=== PATIENT | female | born 1970 | race Caucasian/White ===

== ENCOUNTER → 2017-03-12 | Day surgery (SDC) | payer BC ==
[~2017-03-12] VITALS: Ht 165.1 cm; Wt 99.0 kg
[~2017-03-12] MED LIST: AMLO5TAB2 PO; AMPICILLIN/SULBAC 3 GM/NS 100 ML IV SCH; ATOR20TA15 PO; CHLORHEXIDINE GLUCONATE 2 % 1 PACK (2 CLOTHS) TOPICAL PRN; CLON.5 PO; EXENINJ SQ; FAMOTIDINE 20 MG/2 ML VIAL ONE; HYDROmorphone HCL PF 1 MG/ML VIAL ONE; INSU1.2I SQ; INSULIN HUMAN REGULAR 1,000 UNITS/10 ML VIAL SQ PRN; LACTATED RINGER'S 1000 ML IV PRN; LIDOCAINE 1%/EPINEPHrine 1:100,000 SOLN 20 ML VIAL ONE; LORazepam 2 MG/ML VIAL ONE; METF-382 PO; METOPROLOL TARTRATE 25 MG TAB PO PRN; MIDAZOLAM HCL 2 MG/2 ML VIAL ONE; MORPHINE SULFATE 4 MG/ML INJ ONE; NEOSTIGMINE 3 MG/3 ML SYR IV ONE; ONDANSETRON HCL 4 MG/2 ML VIAL IV PUSH ONE; OXYMETAZOLINE HCL 0.05% 15 ML NASAL SPRAY ONE; POVIDONE IODINE 5% (ANTISEPSIS KIT) 4 APPLICATIONS EACH NARE PRN; PROPOFOL 200 MG/20 ML AMP IV ONE; SODIUM CHLORID 0.9% 500 ML IV PRN; VALS160T4 PO; fentaNYL CITRATE 250 MCG/5 ML AMP IV ONE; fentaNYL CITRATE 250 MCG/5 ML AMP ONE
[2017-03-12 06:50] VITALS: BP 126/83; PULSE 64; RESP 18; TEMP 97.7; O2SAT 97
[2017-03-12 11:20] VITALS: BP 135/89; PULSE 58; RESP 16; TEMP 98.1; O2SAT 94
--- NOTE | 2017-03-13 21:32 | MP ---
cc: ADOLFO SHELL MD DATE OF SURGERY 03/12/[address] Xander shell PREOPERATIVE DIAGNOSIS 1. Nasal airway obstruction 2. Nasal septal deviation. 3. Hypertrophy of inferior turbinates. POSTOPERATIVE DIAGNOSIS 1. Nasal airway obstruction 2. Nasal septal deviation. 3. Hypertrophy of inferior turbinates. OPERATION PERFORMED 1. Open repair nasal septal fracture. 2. Bilateral submucosal resection of inferior turbinates INDICATIONS Documented in the history and physical. PROCEDURE IN DETAIL The patient was taken to OR #2 and placed in the supine position following induction of general anesthesia and intubation, the nose was packed bilaterally with cotton pledgets saturated in 0.05% Oxymetazoline. Nasal septum and inferior turbinates were injected with a total of 8 mL of 1% Xylocaine with epinephrine 1:100,000. She was then prepped and draped for surgery. Packing was removed and a hemitransfixion incision was made in the left nasal vestibule. Through this incision, the septal mucosa was elevated bilaterally as far as the junction of the bony cartilaginous septum. This exposed the quadrangular cartilage which showed evidence of old septal fracture. The cartilage was thick and irregularly deviated with numerous points and spurs obstructing the nasal airway. A cumulative area of 2 x 2.5 cm was removed preserving 1.5 cm dorsal and caudal cartilaginous struts. Next, the mucosa was elevated from the bony septum and the maxillary crest. These were removed using Ortiz Velasco forceps and a 6-mm Renetta chisel. The incision was then closed with a running suture of 4-0 chromic and the mucosal layers of septum were approximated to each other with a quilting stitch of 4-0 plain gut. Inferior turbinates were addressed next. They were fractured out medially. Additional injection of 2 mL of lidocaine with epinephrine was placed in each one posteriorly. On the left side, a 1 cm stab incision was made in the anterior and the inferior turbinate and using a Vic elevator a pocket was opened within the submucosal soft tissue along the medial surface of the conchal bone. Into this pocket, the 2.9 mm Olympus turbinate blade ___ the soft tissue from the medial surface of the conchal bone, was then reinserted into the pocket and withdrawn a second time, this time with the bipolar cautery activated. Additional cautery was applied to the stab incision site following full withdrawal. The right inferior turbinate was then operated in the same fashion and the inferior turbinates were then relateralized to the lateral nasal wall. The nose was then irrigated and suctioned and was packed with 5.5 cm rapid rhino packs bilaterally. Each pack was inflated with 5 mL of air. Procedure was then terminated. The patient was reversed from anesthesia and taken to recovery in good condition. There were no complications. Blood loss was 80 mL. MD MAC Angeles/ /3:07 PM /9:19 PM
== END | disposition home or self-care (01) ==
LOC: PHSDC 06:13
PROVIDERS: ATTEND Otolaryngology
DX: J34.2 Deviated nasal septum (principal); J34.89 Other specified disorders of nose and nasal sinuses; J34.3 Hypertrophy of nasal turbinates; E78.00 Pure hypercholesterolemia, unspecified; E11.9 Type 2 diabetes mellitus without complications; Z79.899 Other long term (current) drug therapy; Z79.84 Long term (current) use of oral hypoglycemic drugs
CPT/HCPCS: 00160; 21336; 30140; J0295; J1170; J2060; J2250; J2270; J2405; J2710; J3010; J7120

== ENCOUNTER 2017-04-11 16:18 | Inpatient (IN) | payer BC ==
[2017-04-11] VITALS (11 sets, daily range): BP systolic 109–140; BP diastolic 69–79; PULSE 67–83; RESP 18–20; TEMP 98.8; O2SAT 96–99
[~2017-04-11] VITALS: Ht 165.1 cm; Wt 95.3 kg
[~2017-04-11 16:18] MED LIST changes: -AMPICILLIN/SULBAC 3 GM/NS 100 ML IV SCH; -CHLORHEXIDINE GLUCONATE 2 % 1 PACK (2 CLOTHS) TOPICAL PRN; -FAMOTIDINE 20 MG/2 ML VIAL ONE; -HYDROmorphone HCL PF 1 MG/ML VIAL ONE; -INSULIN HUMAN REGULAR 1,000 UNITS/10 ML VIAL SQ PRN; -LACTATED RINGER'S 1000 ML IV PRN; -LIDOCAINE 1%/EPINEPHrine 1:100,000 SOLN 20 ML VIAL ONE; -LORazepam 2 MG/ML VIAL ONE; -METOPROLOL TARTRATE 25 MG TAB PO PRN; -MIDAZOLAM HCL 2 MG/2 ML VIAL ONE; -MORPHINE SULFATE 4 MG/ML INJ ONE; -NEOSTIGMINE 3 MG/3 ML SYR IV ONE; -ONDANSETRON HCL 4 MG/2 ML VIAL IV PUSH ONE; -OXYMETAZOLINE HCL 0.05% 15 ML NASAL SPRAY ONE; -POVIDONE IODINE 5% (ANTISEPSIS KIT) 4 APPLICATIONS EACH NARE PRN; -PROPOFOL 200 MG/20 ML AMP IV ONE; -SODIUM CHLORID 0.9% 500 ML IV PRN; -fentaNYL CITRATE 250 MCG/5 ML AMP IV ONE; -fentaNYL CITRATE 250 MCG/5 ML AMP ONE
[2017-04-11] MEDS ORDERED: SODIUM CHLOR 0.9% 1000 ML INJ 1,000 ML IV ONE (16:35)
[2017-04-11] MEDS ORDERED: SODIUM CHLORIDE 0.9% 50 ML BAG IVF ONE (16:45)
[2017-04-11] MEDS ORDERED: ALTEPLASE DRIP 78.5 MG in SYRINGE/BAG 1 EA IV ONE (16:45)
[2017-04-11] MEDS ORDERED: ALTEPLASE BOLUS 9 MG/9 ML SYR IV ONE (16:45)
[2017-04-11] MEDS ORDERED: MISCELLANEOUS NURSING INFORMATION XX PRN (16:45)
--- NOTE | 2017-04-11 16:46 | PD ---
HPI Chief Complaint: Neuro Symptoms/ Deficits Time Seen by Provider: 16:33 Travel History International Travel<30 days: No Contact w/Intl Traveler<30days: No Traveled to known affect area: No History of Present Illness HPI 46-year-old female complains of right arm and right leg numbness and weakness. Patient states the symptoms started about 1:30 this afternoon. Patient states that she has persistent right arm and right leg numbness and tingling and weakness since then. Patient denies any history of TIA or CVA. Patient denies any headache. Patient denies any visual change. Patient complains of numbness sensation on the right side of face also. Patient denies any neck pain. Patient denies any chest pain or shortness of breath. Patient denies abdominal pain. Patient denies any recent injury. Patient has history hypertension, diabetes, hyperlipidemia. Patient is a nonsmoker. PFSH Past Medical History Cancer: No Cardiovascular Problems: Yes Diabetes: Yes Endocrine: No Genitourinary: No Hepatitis: No Hiatal Hernia: No Immune Disorder: No Musculoskeletal: No Neurologic: No Psychiatric: Yes (ANXIETY) Reproductive: No Respiratory: No Thyroid Disease: No ?: Not Past Surgical History Abdominal Surgery: Yes (CHOLECYSTECTOMY) AICD: No Body Medical Devices: R KNEE Gynecologic Surgery: Yes (HYSTERECTOMY) Joint Replacement: Yes (R KNEE) Oral Surgery: Yes (WISDOM TEETH EXTRACTION 1997) Pacemaker: No Social History Tobacco Use: No Substance Use: No Allergies-Medications (Allergen,Severity, Reaction): Coded Allergies: No Known Allergies (Unverified , 04/11/17) Reported Meds & Prescriptions Reported Meds & Active Scripts Active Reported Lomaira (Phentermine HCl) 8 Mg Tab 37.5 Mg PO TID Topamax (Topiramate) 25 Mg Tab 0 PO DAILY Valsartan-Hydrochlorothiazide 160-12.5 Mg Tab 1 Tab PO DAILY Metformin ER (Metformin HCl) 1,000 Mg Cam 1,000 Mg PO DAILY With evening meal Klonopin (Clonazepam) 0.5 Mg Tab 0.5 Mg PO BID PRN Bydureon Inj (Exenatide) 2 Mg Vial 2 Unit SQ Q7D Atorvastatin (Atorvastatin Calcium) 20 Mg Tab 20 Mg PO HS Amlodipine (Amlodipine Besylate) 5 Mg Tab 5 Mg PO DAILY Review of Systems General / Constitutional: No: Fever Eyes: No: Visual changes HENT: No: Headaches Cardiovascular: No: Chest Pain or Discomfort Respiratory: No: Shortness of Breath Gastrointestinal: No: Abdominal Pain Genitourinary: No: Dysuria Musculoskeletal: No: Pain Skin: No Rash Neurologic: No: Weakness Psychiatric: No: Depression Endocrine: No: Polydipsia Hematologic/Lymphatic: No: Easy Bruising Physical Exam Narrative GENERAL: Well-nourished, well-developed patient. SKIN: Focused skin assessment warm/dry. HEAD: Normocephalic. EYES: No scleral icterus. No injection or drainage. NECK: Supple, trachea midline. No JVD or lymphadenopathy. CARDIOVASCULAR: Regular rate and rhythm without murmurs, gallops, or rubs. RESPIRATORY: Breath sounds equal bilaterally. No accessory muscle use. GASTROINTESTINAL: Abdomen soft, non-tender, nondistended. MUSCULOSKELETAL: No cyanosis, or edema. BACK: Nontender without obvious deformity. No CVA tenderness. Neurologic exam: Patient is awake and alert oriented 3. Patient has mild decrease in light touch sensation the right side the face. Patient can answer question appropriately however patient states that her speech did not completely normal. Patient states that she has feeling of tongue swelling however not on examination. Patient has mild decrease in light touch sensation of the right arm and right leg and mild weakness on the right arm and right leg. Strength is 4 over 5 right upper and right lower extremity. Deep tendon reflexes 1+ and equal. Negative Babinski. Data Data Last Documented VS Vital Signs Date Time Temp Pulse Resp B/P (MAP) Pulse Ox O2 Delivery O2 Flow Rate FiO2 04/11/17 19:11 70 20 115/74 (88) 98 04/11/17 18:39 Room Air 04/11/17 16:38 98.8 04/11/17 16:35 21 Orders Orders Cath For Specimen (04/11/17 16:35) Neuro Checks Q2HX12,Q4H (04/11/17 16:35) Nursing Bedside Swallow Assess .ONCE (04/11/17 16:35) Activity Bed Rest (04/11/17 16:35) Diet Npo (04/11/17 Dinner) Prothrombin Time / Inr (Pt) (04/11/17 16:35) Act Partial Throm Time (Ptt) (04/11/17 16:35) Complete Blood Count With Diff (04/11/17 16:35) Basic Metabolic Panel (Bmp) (04/11/17 16:35) Fibrinogen (04/11/17 16:35) Creatine Kinase (Cpk) (04/11/17 16:35) Troponin I (04/11/17 16:35) Ua Includes Microscopic (04/11/17 16:35) Drug Screen, Random Urine (04/11/17 16:35) Type And Screen (04/11/17 16:35) Ct Brain W/O Iv Contrast(Rout) (04/11/17 ) Chest, Single Ap (04/11/17 ) Electrocardiogram (04/11/17 ) Beta Hcg (Quant/Titer) (04/11/17 16:35) Consult Neurology (04/11/17 16:35) Sodium Chlor 0.9% 1000 Ml Inj (Ns 1000 M (04/11/17 16:35) Blood Glucose (04/11/17 16:35) Ecg Monitoring (04/11/17 16:35) Iv Access Insert/Monitor (04/11/17 16:35) NPO (04/11/17 16:35) Oximetry (04/11/17 16:35) Oxygen Administration (04/11/17 16:35) Resp Oxygen Charles C Titrat 1-4 L (04/11/17 16:35) ^ Call Pharmacy (04/11/17 16:43) Nih Stroke Scale - Nihss .ONCE (04/11/17 16:43) Urinary Catheter Insert/Apply (04/11/17 16:43) Anticoagulant Alert (04/11/17 16:43) ^ Post Infusion Restrictions (04/11/17 16:43) ^ Medication Alert (04/11/17 16:43) Vital Signs (Adult) .As directed (04/11/17 16:43) Notify Dr: Blood Pressure (04/11/17 16:43) ^ Medication Alert (04/11/17 16:43) Alteplase Bolus (Activase Bolus) (04/11/17 16:45) Alteplase Drip (Activase Drip) (04/11/17 16:45) Sodium Chloride 0.9% Inj (Ns Inj) (04/11/17 16:45) Misc Nursing Information (04/11/17 16:45) Resp Oxygen Charles C Titrat 1-4 L (04/11/17 ) Aspirin (Aspirin) (04/11/17 17:15) Sodium Chlor 0.9% 250 Ml Inj (Ns 250 Ml (04/11/17 17:30) (Hub Use Only)Inp Phy Cons/Ref (04/11/17 17:37) Anti-Thrombin, Functional (04/11/17 17:40) Cardiolipin Abs Igg,Igm,Iga (04/11/17:40) Protein C Activity (04/11/17:40) Protein S Activity (04/11/17:40) Factor V (5) Mutation (Leiden) (04/11/17 17:40) Prothrombin [id number] Mutation (04/11/17:40) Lupus Anticoagulant Drvvt (04/11/17:40) Factor Viii (8) Activity Ref (04/11/17 17:40) Folate, Serum (04/11/17 17:40) Westergren Sedimentation Rate (04/11/17:40) Rapid Plasma Regin (Rpr) W Ttr (04/11/17:40) Debbie Screen (04/11/17:40) Thyroid Stimulating Hormone (04/11/17 17:40) Free Thyroxine (T4) (04/11/17:40) Protein Electrophoresis Serum (04/11/17:40) Vitamin B1 (Thiamine) (04/11/17 17:40) Vitamin B12 (04/11/17 17:40) Urinalysis - C+S If Indicated (04/11/17:40) Ast (Sgot) (04/11/17:40) Alt (Sgpt) (04/11/17 17:40) Mri Brain W&W/O Contrast (04/11/17 17:40) Eeg Study (04/11/17:40) Echo 2d Comp With Doppler (04/11/17:40) Holter Monitor Recording (04/11/17:40) Vacuum Pan Tender / Telemetry PAMELLA.Q8H (04/11/17 17:40) ^ Seizure Precautions (04/11/17 17:40) Mra Brain W/O Contrast (Cow) (04/11/17 17:40) [place] (04/11/17:40) Clopidogrel (Plavix) (04/11/17 17:45) Aspirin Ec (Ecotrin Ec) (04/12/17 09:00) Sodium Chlor 0.9% 1000 Ml Inj (Ns 1000 M (04/11/17 17:40) Lipid Profile (04/11/17 17:40) Mra Carotids W Contrast (04/11/17 17:40) Drug Screen, Random Urine (04/11/17 17:40) Scd&Teds Bilateral/Knee High PAMELLA.QSHIFT (04/11/17 17:40) Admit Order (Ed Use Only) (04/11/17 19:18) Labs Laboratory Tests Test 04/11/17 17:00 04/11/17 18:50 White Blood Count 8.7 TH/MM3 Red Blood Count 4.91 MIL/MM3 Hemoglobin 13.8 GM/DL Hematocrit 42.2 % Mean Corpuscular Volume 85.9 FL Mean Corpuscular Hemoglobin 28.2 PG Mean Corpuscular Hemoglobin Concent 32.8 % Red Cell Distribution Width 12.8 % Platelet Count 207 TH/MM3 Mean Platelet Volume 9.7 FL Neutrophils (%) (Auto) 70.3 % Lymphocytes (%) (Auto) 23.6 % Monocytes (%) (Auto) 3.8 % Eosinophils (%) (Auto) 1.8 % Basophils (%) (Auto) 0.5 % Neutrophils # (Auto) 6.2 TH/MM3 Lymphocytes # (Auto) 2.0 TH/MM3 Monocytes # (Auto) 0.3 TH/MM3 Eosinophils # (Auto) 0.2 TH/MM3 Basophils # (Auto) 0.0 TH/MM3 CBC Comment DIFF FINAL Differential Comment Erythrocyte Sedimentation Rate 12 mm/hr Prothrombin Time 10.8 SEC Prothromb Time International Ratio 1.0 RATIO Activated Partial Thromboplast Time 25.3 SEC Fibrinogen 342 mg/dL Blood Urea Nitrogen 10 MG/DL Creatinine 0.92 MG/DL Random Glucose 143 MG/DL Calcium Level 9.0 MG/DL Sodium Level 137 MEQ/L Potassium Level 3.4 MEQ/L Chloride Level 103 MEQ/L Carbon Dioxide Level 24.7 MEQ/L Anion Gap 9 MEQ/L Estimat Glomerular Filtration Rate 65 ML/MIN Total Creatine Kinase 178 U/L Troponin I LESS THAN 0.02 NG/ML Human Chorionic Gonadotropin, Quant 1 MIU/ML Aspartate Amino Transf (AST/SGOT) 23 U/L Alanine Aminotransferase (ALT/SGPT) 32 U/L Thyroid Stimulating Hormone 3rd Gen 1.220 uIU/ML MDM Medical Decision Making Medical Screen Exam Complete: Yes Emergency Medical Condition: Yes Interpretation(s) Last Impressions Head CT 04/11/17 0000 Signed Impressions: Service Date/Time: March 16:37 - CONCLUSION: Negative noncontrast CT Dani Valladares MD Chest X-Ray 04/11/17 0000 Signed Impressions: Service Date/Time: March 16:51 - CONCLUSION: No acute disease. Dani Valladares MD 1821 PM. CBC within normal limit. BMP within normal limits. Potassium 3.4. Cardiac enzymes are normal. Beta hCG negative. Differential Diagnosis Differential diagnosis including TIA, CVA. Narrative Course 46-year-old female with decrease in light touch sensation on the right face, mild aphasia, mild weakness on right on right leg and mild numbness on right on right leg. Symptoms started about 3 hours prior to arrival. Stroke alert was called. I spoke with neurologist Dr. St. TPA was ordered. Patient came back from CT and symptoms resolving. Patient almost back to normal. TPA was not given. Dr. St came to see the patient. Advised aspirin and Plavix. Aspirin 325 mg by mouth given. Diagnosis Primary Impression: TIA (transient ischemic attack) Qualified Codes: G45.9 - Transient cerebral ischemic attack, unspecified Admitting Information Admitting Physician Requests: Admit Alexis Nunez MD Apr 11, 2017 16:46
--- NOTE | 2017-04-11 16:52 | RADRPT ---
EXAM DATE/TIME: 04/11/2017 16:37 [facility] COMPARISON: No previous studies available for comparison. INDICATIONS : Stroke alert. Slurred speech, right facial numbness, right arm and leg weakness. RADIATION DOSE: 65.75 CTDIvol (mGy) This report was called by Dr. Valladares to Dr. Mccoy at 1648 hrs. MEDICAL HISTORY : Diabetes mellitus type 2. Hypertension. SURGICAL HISTORY : Unable to obtain. ENCOUNTER: Initial ACUITY: 1 day PAIN SCALE: 0/10 LOCATION: cranial TECHNIQUE: Multiple contiguous axial images were obtained of the head. Using automated exposure control and adj ustment of the mA and/or kV according to patient size, radiation dose was kept as low as reasonably a chievable to obtain optimal diagnostic quality images. DICOM format image data is available electro nically for review and comparison. FINDINGS: CEREBRUM: The ventricles are normal for age. No evidence of midline shift, mass lesion, hemorrhage or acute in farction. No extra-axial fluid collections are seen. POSTERIOR FOSSA: The cerebellum and brainstem are intact. The 4th ventricle is midline. The cerebellopontine angle i s unremarkable. EXTRACRANIAL: The visualized portion of the orbits is intact. SKULL: The calvaria is intact. No evidence of skull fracture. CONCLUSION: Negative noncontrast CT Dani Valladares MD on April 11, 2017 at 16:47 Board Certified Radiologist. This report was verified electronically.
[2017-04-11 17:06] LABS: AUTOMATED NEUTROPHIL # 6.2 TH/MM3 (1.8-7.7); BASOPHIL % 0.5 % (0.0-2.0); EOSINOPHIL # 0.2 TH/MM3 (0-0.4); EOSINOPHIL % 1.8 % (0.0-4.0); HEMATOCRIT 42.2 % (35.0-46.0); HEMO FLAGS DIFF FINAL; LYMPH % 23.6 % (9.0-44.0); MEAN CELL VOLUME 85.9 FL (80.0-100.0); MEAN CORPUSCULAR HEMOGLOBIN 28.2 PG (27.0-34.0); MEAN CORPUSCULAR HGB CONC 32.8 % (32.0-36.0); MONO % 3.8 % (0.0-8.0); NEUT % 70.3 % (16.0-70.0); PLATELET COUNT 207 TH/MM3 (150-450); RED BLOOD COUNT 4.91 MIL/MM3 (4.00-5.30); RED CELL DISTRIBUTION WIDTH 12.8 % (11.6-17.2); WHITE BLOOD COUNT 8.7 TH/MM3 (4.0-11.0)
--- NOTE | 2017-04-11 17:11 | RADRPT ---
EXAM DATE/TIME: 04/11/2017 16:51 [facility] COMPARISON: No previous studies available for comparison. INDICATIONS : General weakness; Stroke alert. MEDICAL HISTORY : Hypertension. Diabetes mellitus type II. SURGICAL HISTORY : None. ENCOUNTER: Initial ACUITY: 1 day PAIN SCORE: 0/10 LOCATION: Bilateral chest FINDINGS: A single view of the chest demonstrates the lungs to be symmetrically aerated without evidence of mas s, infiltrate or effusion. The cardiomediastinal contours are unremarkable. Osseous structures are intact. CONCLUSION: No acute disease. Dani Valladares MD on April 11, 2017 at 17:08 Board Certified Radiologist. This report was verified electronically.
[2017-04-11 17:14] LABS: CHLORIDE 103 MEQ/L (98-107); POTASSIUM 3.4 MEQ/L (3.5-5.1); SODIUM (NA) 137 MEQ/L (136-145)
[2017-04-11] MEDS ORDERED: PHEN-556 PO (17:14)
[2017-04-11] MEDS ORDERED: TOPA25TA8 PO (17:14)
[2017-04-11] MEDS ORDERED: ASPIRIN 325 MG TAB PO ONE (17:15)
[2017-04-11 17:17] LABS: ANION GAP 9 MEQ/L (5-15); BICARBONATE 24.7 MEQ/L (21.0-32.0)
[2017-04-11 17:18] LABS: BLOOD UREA NITROGEN 10 MG/DL (7-18)
[2017-04-11 17:20] LABS: APTT (PATIENT) 25.3 SEC (24.3-30.1); PROTHROMBIN TIME - PATIENT 10.8 SEC (9.8-11.6)
[2017-04-11 17:21] LABS: GLOMERULAR FILTRATION RATE 65 ML/MIN (>89)
[2017-04-11 17:24] LABS: CREATINE KINASE 178 U/L (26-192)
[2017-04-11 17:25] LABS: BETA HCG QUANT 1 MIU/ML (0-5)
[2017-04-11] MEDS ORDERED: SODIUM CHLOR 0.9% 250 ML INJ 250 ML IV ONE (17:30)
[2017-04-11] MEDS ORDERED: SODIUM CHLOR 0.9% 1000 ML INJ 1,000 ML IV SCH (17:40)
[2017-04-11] MEDS ORDERED: CLOPIDOGREL 75 MG TAB PO SCH (17:45)
[2017-04-11 19:32] LABS: ALT (GPT) 32 U/L (10-53); AST (GOT) 23 U/L (15-37)
[2017-04-11] MEDS ORDERED: GADODIAMIDE PF 287 MG/ML 20 ML VIAL (for RAD MRI) IV PUSH ONE (19:45)
[2017-04-11 20:40] LABS: FREE T4 1.13 NG/DL (0.76-1.46); HDL CHOLESTEROL 44.4 MG/DL (40.0-60.0); LDL CHOLESTEROL 120 MG/DL (0-99); TOTAL PROTEIN SPE 7.4 GM/DL (6.0-7.6)
[2017-04-11 21:06] LABS: BLOOD, URINE NEG (NEG); GLUCOSE,URINE NEG (NEG); KETONE, URINE 15 mg/dL (NEG); NITRITE,URINE NEG (NEG)
--- NOTE | 2017-04-11 21:08 | RADRPT ---
EXAM DATE/TIME: 04/11/2017 19:45 [facility] COMPARISON: MRI BRAIN W & W/O CONTRAST, April 11, 2017, 19:45. INDICATIONS : CVA. Right sided weakness. MEDICAL HISTORY : Diabetes mellitus type 2. SURGICAL HISTORY : Cholecystectomy. Knee replacement and breast reduction. ENCOUNTER: Initial ACUITY: 1 day PAIN SCORE: 0/10 LOCATION: Head. Please note a normal MRA of the brain does not entirely exclude the possibility of a small aneurysm, nor the possibility of distal intracranial vessel disease. TECHNIQUE: 3D time of flight MRA was performed. Source images, multiplanar STS MIP, and 3D volume MIP reconstru ctions were reviewed. FINDINGS: There is excellent visualization of the major intracranial arteries out to the second-order branch ve ssels. There is no evidence for aneurysm, vessel truncation or stenosis, and no evidence for vascula r malformation. CONCLUSION: No acute disease. Byron Davis MD on April 11, 2017 at 21:05 Board Certified Radiologist. This report was verified electronically.
--- NOTE | 2017-04-11 21:11 | RADRPT ---
EXAM DATE/TIME: 04/11/2017 19:45 [facility] COMPARISON: No previous studies available for comparison. INDICATIONS : CVA. Numbness on right side. CONTRAST: 20 cc Omniscan (gadodiamide) IV MEDICAL HISTORY : Diabetes mellitus type 2. SURGICAL HISTORY : Cholecystectomy. Knee replacement and breast reduction. ENCOUNTER: Initial ACUITY: 1 day PAIN SCORE: 0/10 LOCATION: Head. TECHNIQUE: Multiplanar, multisequence MRI of the brain was performed both prior to and following the administrat ion of paramagnetic contrast. FINDINGS: CEREBRUM: The ventricles are normal for age. No evidence of midline shift, mass lesion, hemorrhage or acute in farction. No extraaxial fluid collections are seen. The pituitary gland and suprasellar cistern are normal in configuration. WHITE MATTER: No significant signal abnormalities are seen in the white matter. POSTERIOR FOSSA: The cerebellum and brainstem are intact. The 4th ventricle is midline. The cerebellopontine angle is unremarkable. The cerebellar tonsils are normal in position. DIFFUSION IMAGING: No focal areas of restricted diffusion are seen. No evidence of acute infarction. EXTRACRANIAL: The visualized portions of the orbits and paranasal sinuses are unremarkable. POST-CONTRAST: No abnormal areas of parenchymal or dural enhancement. No evidence of blood-brain barrier breakdown. CONCLUSION: No acute disease. Byron Davis MD on April 11, 2017 at 21:08 Board Certified Radiologist. This report was verified electronically.
--- NOTE | 2017-04-11 21:12 | RADRPT ---
EXAM DATE/TIME: 04/11/2017 19:45 [facility] COMPARISON: No previous studies available for comparison. INDICATIONS : Stroke. Right sided weakness. CONTRAST: 20 cc Omniscan (gadodiamide) IV MEDICAL HISTORY : Diabetes mellitus type 2. SURGICAL HISTORY : Cholecystectomy. Breast reduction and total knee replacement. ENCOUNTER: Initial ACUITY: 1 day PAIN SCORE: 0/10 LOCATION: Head. Percent stenosis is calculated using the diameter of the stenotic region over the diameter of the nor mal distal internal carotid artery. TECHNIQUE: Bolus infused MRA of the extracranial circulation was performed using a neurovascular coil. Post pro cessing was performed including rotating subvolume maximum intensity projections of each carotid carissa ry, rotating full volume maximum intensity projections of both carotid arteries, sagittal and coronal sliding thin slab reformations of each carotid artery, and left oblique sliding thin slab reformatio n through the aortic arch to include the origin of the arch branch vessels. FINDINGS: AORTIC ARCH: The right brachiocephalic and left common carotid artery have a common origin. The left subclavian ar maritza origin is normal. No evidence of ostial narrowing. RIGHT CAROTID: The common carotid artery is intact. The carotid bulb has a normal configuration without ulceration or narrowing. The internal carotid artery lumen is smooth without stenosis. The external carotid ar maritza is intact. LEFT CAROTID: The common carotid artery is intact. The carotid bulb has a normal configuration without ulceration or narrowing. The internal carotid artery lumen is smooth without stenosis. The external carotid ar maritza is intact. VERTEBRALS: The vertebral arteries are patent. There is asymmetry with the left vertebral artery being larger dena n the right side. No stenotic lesions are seen. CONCLUSION: Normal examination. Byron Davis MD on April 11, 2017 at 21:09 Board Certified Radiologist. This report was verified electronically.
[2017-04-11 21:13] LABS: URINE COLOR YELLOW (YELLW/STRAW)
[2017-04-11 21:14] LABS: COMMENT (UR) CATH-CULT NOT IND; SQUAMOUS EPITHELIAL CELL URINE 0-5 /hpf (0-5)
--- NOTE | 2017-04-11 23:04 | MB ---
cc: JASMYN VILLANUEVA M.D. DATE OF CONSULTATION 04/11/17 HISTORY OF PRESENT ILLNESS The patient is a 46-year-old right-handed woman with a history of hypertension, hypercholesterolemia, diabetes with occasional insulin use. She does take a baby aspirin a day and today she noticed the onset about 1/2 hour before coming in of her right face, arm and leg tingling. It started with some pain in the right arm and then tingling in the right arm, went to the right leg and then the face. She had some thickness in her tongue, some clumsiness walking in the right leg. The right leg felt heavy and came into the ER. That all has cleared however, she was brought down to CAT but on the way back she cleared and has normalized so she did not get TPA. REVIEW OF SYSTEMS Denies any RI, CABG, cardiac arrhythmia, renal, hepatic or pulmonary disease, thyroid disease, lupus, ulcer, cancer, seizure, stroke. No a-fib or Coumadin. No stents or angioplasty. SOCIAL HISTORY Not a smoker or drinker. Lives by herself. FAMILY HISTORY Negative for cancer seizure, stroke. She has an aunt with an aneurysm. MEDICATIONS 1. Insulin p.r.n. 2. Valsartan. 3. Hydrochlorothiazide. 4. Metformin. 5. Klonopin 0.5 b.i.d. 6. Exenatide subcu. 7. Atorvastatin. 8. Amlodipine. 9. Recently on a stimulant and Topamax to lose weight, for the last 2 weeks. PHYSICAL EXAMINATION VITAL SIGNS: On exam sinus rhythm, afebrile, 74, 18, 126/74. NECK: There were no carotid bruits. HEART: Regular rhythm. I did not detect a murmur. NEURO: Pupils are equally. Visual holland are full. Extraocular movements are intact without nystagmus. Face symmetric, normal station. Tongue was midline. There is no drift. She had normal strength in upper and lower extremities bilaterally. DTRs 1+ symmetric throughout. Toes downgoing bilaterally. Pinprick and vibratory sense are intact throughout. She is not ataxic on [id number]. Specifically, right face, arm and leg are normal, pinprick, ___ are symmetric and normal. She can repeat, calculate and name normally. Speech is fluent, not aphasic. LABORATORY DATA CBC is normal. Basic metabolic profile, troponin normal except for glucose of 143. HCG negative. Coags normal. IMAGING STUDIES CAT scan of the brain read as negative. Chest x-ray read as negative. EKG sinus rhythm. Review of the CT of the brain essentially normal. IMPRESSION TIA. Will check an MRI of the brain, MRA [place] of [place] and neck. Put her on Plavix. Check an LDL, some other blood work, considering her age a hypercoag screen. I will be following her with you in the hospital. DC her aspirin in 3 days. Check an echo and Holter. Check an EEG. She is returned normal at this time. NIH stroke scale 0. MD MARILEE Allison/TITI /5:34 PM /10:42 PM
[2017-04-12 04:00] VITALS: BP 168/79; PULSE 66; RESP 20; TEMP 97.6; O2SAT 98
[2017-04-12] MEDS ORDERED: ASPIRIN EC 325 MG TABEC PO SCH (09:00)
[2017-04-12 13:33] LABS: ANA SCREEN NEG (NEG)
--- NOTE | 2017-04-13 01:08 | EKG ---
Date Performed: 04/11/2017 Time Performed: 17:07:03 PTAGE: 46 years EKG: Sinus rhythm INCOMPLETE RIGHT BUNDLE BRANCH BLOCK NON-SPECIFIC ST/T WAVE CHANGES NO PREVIOUS TRACING DOCTOR: Emanuel Win Interpretating Date/Time 04/13/2017 01:07:02
[2017-04-15 15:51] LABS: THROMBIN TIME FOR LA ND sec (13-19)
[2017-04-16 09:04] LABS: ALBUMIN SPE 4.86 GM/DL (3.50-5.00); ALPHA 1 GLOBULIN 0.16 GM/DL (0.11-0.29); ALPHA 2 GLOBULIN 0.78 GM/DL (0.22-1.00); BETA GLOBULINS (SPE) 0.74 GM/DL (0.53-1.03)
== END 2017-04-12 07:07 | disposition left against medical advice (07) | DRG 69 ==
LOC: PHED 16:18 → PHEDA 19:19 → PH3A 22:52
PROVIDERS: ADMIT Hospitalist; ATTEND Hospitalist
DX: G45.9 Transient cerebral ischemic attack, unspecified (principal); R47.01 Aphasia; R20.2 Paresthesia of skin; I10 Essential (primary) hypertension; E78.00 Pure hypercholesterolemia, unspecified; E11.9 Type 2 diabetes mellitus without complications; Z79.84 Long term (current) use of oral hypoglycemic drugs; Z79.899 Other long term (current) drug therapy; Z96.651 Presence of right artificial knee joint
CPT/HCPCS: 70450; 70544; 70548; 70553; 71010; 80048; 80061; 80307; 81001; 81240; 81241; 82550; 82607; 82746; 84165; 84425; 84439; 84443; 84450; 84460; 84484; 84702; 85025; 85240; 85300; 85303; 85306; 85384; 85610; 85613; 85652; 85730; 86038; 86147; 86592; 86850; 86900; 86901; 93005; 96360; A9579; J7030